=== PATIENT | male | born 1945 | race Caucasian/White ===

== ENCOUNTER → 2024-06-20 11:15 | Outpatient (REF) | payer MEDICARE, SELFPAY ==
[2024-06-20 12:11] LABS: % Basophils 0.1 % (0-2); % Eosinophils 1.1 % (0-6); % Immature Granulocytes 0.3 % (0-0.5); % Lymphocytes 25.2 % (20.5-51.1); % Monocytes 6.3 % (1.7-9.3); Absolute Eosinophils 0.1 10^3/uL (0-0.7); Absolute Lymphocytes 1.9 10^3/uL (1.2-3.4); Absolute Monocytes 0.5 10^3/uL (0.1-0.6); Hemoglobin 15.9 g/dL (13.0-18.0); Mean Corp Hgb Conc. 34.6 g/dL (33.0-37.0); Mean Corpuscular Volume 89.7 fL (80.0-94.0); Mean Platelet Volume 10.3 fL (7.4-10.4); Nucleated Red Blood Cells % 0 % (-); Platelet Count 233 10^3/uL (130-400); Red Blood Cell Count 5.13 10^6/uL (4.70-6.10); Red Cell Dist. Width 11.8 % (11.5-14.5); White Blood Cell Count 7.4 10^3/uL (4.8-10.8)
[2024-06-20 12:33] LABS: ALT (SGPT) 28 U/L (0-50); AST (SGOT) 30 U/L (17-59); Albumin 4.3 g/dl (3.5-5.0); Alkaline Phosphatase 118 U/L (38-126); Blood Urea Nitrogen 21 mg/dl (9-20); Calcium 9.2 mg/dl (8.4-10.2); Carbon Dioxide 28 mmol/L (22-30); Chloride 99 mmol/L (98-107); Glucose 130 mg/dl (70-99); HDL Cholesterol 36 mg/dl; LDL Cholesterol, Calculated 70 mg/dl; Potassium 4.4 mmol/L (3.5-5.1); Sodium 137 mmol/L (135-145); Total Bilirubin 1.1 mg/dl (0.2-1.3); Total Cholesterol 128 mg/dl (50-199); Total Protein 6.8 g/dl (6.3-8.2); Triglyceride 112 mg/dl (10-149); Very Low Density Lipoprotein 22 mg/dl (0-30); eGFR > 60.00
[2024-06-20 13:09] LABS: TSH Reflex To Free T4 1.47 uIU/ml (0.47-4.68)
[2024-06-20 13:28] LABS: Vitamin B12 215 pg/ml (239-931)
[2024-06-21 10:21] LABS: Glycohemoglobin (HgbA1c) 6.3 % (4.0-5.6)
== END ==
LOC: REG 11:15
PROVIDERS: ATTENDING PHYSICIAN Nurse Practitioner Adult Health
DX: E11.69 Type 2 diabetes mellitus with other specified complication (principal); I10 Essential (primary) hypertension; E78.2 Mixed hyperlipidemia; E53.8 Deficiency of other specified B group vitamins; Z00.00 Encounter for general adult medical examination without abnormal findings; Z13.29 Encounter for screening for other suspected endocrine disorder; Z51.81 Encounter for therapeutic drug level monitoring
CPT/HCPCS: 36415; 80053; 80061; 82607; 83036; 84443; 85025

== ENCOUNTER → 2024-09-27 15:21 | Outpatient (REF) | payer MEDICARE, SELFPAY ==
[2024-09-27 16:07] LABS: Digoxin 0.8 ng/ml (0.8-2.0)
== END ==
LOC: REG 15:21
PROVIDERS: ATTENDING PHYSICIAN Internal Medicine; FAMILY PHYSICIAN Nurse Practitioner Adult Health
DX: I48.0 Paroxysmal atrial fibrillation (principal)
CPT/HCPCS: 36415; 80162

== ENCOUNTER → 2024-11-11 06:28 | Day surgery (SDC) | payer MEDICARE, SELFPAY | LOC: GI 06:28 | PROVIDERS: ATTENDING PHYSICIAN Internal Medicine | DX: Z12.11 Encounter for screening for malignant neoplasm of colon (principal); K64.9 Unspecified hemorrhoids; D12.2 Benign neoplasm of ascending colon; D12.3 Benign neoplasm of transverse colon; Z86.0101 Personal history of adenomatous and serrated colon polyps | CPT/HCPCS: 45385; 88305 ==

== ENCOUNTER → 2024-12-11 12:13 | Outpatient (REF) | payer MEDICARE, SELFPAY ==
[2024-12-11 12:56] LABS: % Basophils 0.3 % (0-2); % Immature Granulocytes 0.4 % (0-0.5); % Lymphocytes 22.8 % (20.5-51.1); % Monocytes 5.4 % (1.7-9.3); % Neutrophils 70.1 % (42.2-75.2); Absolute Eosinophils 0.1 10^3/uL (0-0.7); Absolute Lymphocytes 1.6 10^3/uL (1.2-3.4); Absolute Monocytes 0.4 10^3/uL (0.1-0.6); Absolute Neutrophils 4.8 10^3/uL (1.4-6.5); Hematocrit 44.8 % (39.0-52.0); Hemoglobin 15.2 g/dL (13.0-18.0); Mean Corp Hgb Conc. 33.9 g/dL (33.0-37.0); Mean Corpuscular Hgb 30.3 pg (27.0-31.0); Mean Corpuscular Volume 89.4 fL (80.0-94.0); Mean Platelet Volume 9.7 fL (7.4-10.4); Nucleated Red Blood Cells % 0 % (-); Platelet Count 244 10^3/uL (130-400); Red Blood Cell Count 5.01 10^6/uL (4.70-6.10); Red Cell Dist. Width 11.9 % (11.5-14.5); White Blood Cell Count 6.9 10^3/uL (4.8-10.8)
[2024-12-11 13:35] LABS: Glycohemoglobin (HgbA1c) 6.6 % (4.0-5.6)
[2024-12-11 13:37] LABS: ALT (SGPT) 30 U/L (0-50); AST (SGOT) 31 U/L (17-59); Albumin 4.2 g/dl (3.5-5.0); Alkaline Phosphatase 124 U/L (38-126); Blood Urea Nitrogen 19 mg/dl (9-20); Calcium 9.4 mg/dl (8.4-10.2); Carbon Dioxide 30 mmol/L (22-30); Chloride 97 mmol/L (98-107); Glucose 177 mg/dl (70-99); Potassium 4.3 mmol/L (3.5-5.1); Sodium 136 mmol/L (135-145); Total Bilirubin 1.3 mg/dl (0.2-1.3); Total Protein 6.8 g/dl (6.3-8.2); eGFR > 60.00
[2024-12-11 14:24] LABS: Vitamin B12 453 pg/ml (239-931)
== END ==
LOC: REG 12:13
PROVIDERS: ATTENDING PHYSICIAN Nurse Practitioner Adult Health
DX: E11.69 Type 2 diabetes mellitus with other specified complication (principal); I10 Essential (primary) hypertension; E53.8 Deficiency of other specified B group vitamins; Z13.29 Encounter for screening for other suspected endocrine disorder; Z00.00 Encounter for general adult medical examination without abnormal findings; Z79.899 Other long term (current) drug therapy
CPT/HCPCS: 36415; 80053; 82607; 83036; 85025

== ENCOUNTER → 2025-04-04 12:22 | Outpatient (REF) | payer MEDICARE, SELFPAY ==
[2025-04-04 13:57] LABS: HDL Cholesterol 40 mg/dl; LDL Cholesterol, Calculated 56 mg/dl; Total Cholesterol 112 mg/dl (50-199); Triglyceride 81 mg/dl (10-149); Very Low Density Lipoprotein 16 mg/dl (0-30)
== END ==
LOC: REG 12:22
PROVIDERS: ATTENDING PHYSICIAN Internal Medicine; FAMILY PHYSICIAN Nurse Practitioner Adult Health
DX: E78.2 Mixed hyperlipidemia (principal)
CPT/HCPCS: 36415; 80061

== ENCOUNTER → 2025-04-15 12:09 | Outpatient (REF) | payer MEDICARE, SELFPAY | LOC: HWRCS 12:09 | PROVIDERS: ATTENDING PHYSICIAN Internal Medicine; FAMILY PHYSICIAN Nurse Practitioner Adult Health | DX: I25.118 Atherosclerotic heart disease of native coronary artery with other forms of angina pectoris (principal); I48.0 Paroxysmal atrial fibrillation; I25.5 Ischemic cardiomyopathy; I36.1 Nonrheumatic tricuspid (valve) insufficiency; E78.2 Mixed hyperlipidemia | CPT/HCPCS: 78452; 93017; A9500; J2785 ==

== ENCOUNTER → 2025-04-22 15:13 | Outpatient (REF) | payer MEDICARE, SELFPAY | LOC: RCS 15:13 | PROVIDERS: ATTENDING PHYSICIAN Internal Medicine; FAMILY PHYSICIAN Nurse Practitioner Adult Health | DX: I48.0 Paroxysmal atrial fibrillation (principal); I25.118 Atherosclerotic heart disease of native coronary artery with other forms of angina pectoris; I25.5 Ischemic cardiomyopathy; R09.89 Other specified symptoms and signs involving the circulatory and respiratory systems; I36.1 Nonrheumatic tricuspid (valve) insufficiency; E78.2 Mixed hyperlipidemia | CPT/HCPCS: 93306 ==

== ENCOUNTER → 2025-06-16 15:39 | Outpatient (REF) | payer MEDICARE, SELFPAY ==
[2025-06-16 17:16] LABS: HDL Cholesterol 35 mg/dl; LDL Cholesterol, Calculated 43 mg/dl; Very Low Density Lipoprotein 19 mg/dl (0-30)
== END ==
LOC: REG 15:39
PROVIDERS: ATTENDING PHYSICIAN Nurse Practitioner Adult Health
DX: E11.69 Type 2 diabetes mellitus with other specified complication (principal); I10 Essential (primary) hypertension; E53.8 Deficiency of other specified B group vitamins; Z13.29 Encounter for screening for other suspected endocrine disorder; Z79.899 Other long term (current) drug therapy; Z00.00 Encounter for general adult medical examination without abnormal findings
CPT/HCPCS: 36415; 80061; 84443

== ENCOUNTER → 2025-08-05 14:48 | Outpatient (REF) | payer MEDICARE, SELFPAY ==
[2025-08-05 16:09] LABS: Hematocrit 48.6 % (39.0-52.0); Hemoglobin 16.2 g/dL (13.0-18.0); Mean Corp Hgb Conc. 33.3 g/dL (33.0-37.0); Mean Corpuscular Volume 90.0 fL (80.0-94.0); Nucleated Red Blood Cells % 0 % (-); Platelet Count 308 10^3/uL (130-400); Red Cell Dist. Width 11.9 % (11.5-14.5)
[2025-08-05 16:55] LABS: ALT (SGPT) 40 U/L (0-50); AST (SGOT) 26 U/L (17-59); Albumin 4.5 g/dl (3.5-5.0); Alkaline Phosphatase 95 U/L (38-126); Blood Urea Nitrogen 20 mg/dl (9-20); Calcium 9.9 mg/dl (8.4-10.2); Carbon Dioxide 31 mmol/L (22-30); Chloride 100 mmol/L (98-107); Glucose 208 mg/dl (70-99); Potassium 4.7 mmol/L (3.5-5.1); Sodium 139 mmol/L (135-145); Total Protein 7.1 g/dl (6.3-8.2); eGFR > 60.00
== END ==
LOC: REG 14:48
PROVIDERS: ATTENDING PHYSICIAN Specialist; FAMILY PHYSICIAN Family Medicine
DX: R31.0 Gross hematuria (principal)
CPT/HCPCS: 36415; 80053; 85025

== ENCOUNTER → 2025-08-08 13:59 | Outpatient (REF) | payer MEDICARE, SELFPAY | LOC: RAD 13:59 | PROVIDERS: ATTENDING PHYSICIAN Specialist; FAMILY PHYSICIAN Nurse Practitioner Adult Health | DX: R31.0 Gross hematuria (principal) | CPT/HCPCS: 74178; Q9967 ==

== ENCOUNTER 2025-09-11 06:31 | Day surgery (SDC) | payer MEDICARE, SELFPAY ==
[2025-09-11] VITALS (10 sets, daily range): BP systolic 120–160; BP diastolic 73–90; BMI 21.6
== END 2025-09-11 16:02 | disposition home or self-care (01) ==
LOC: SDS 06:31
PROVIDERS: ATTENDING PHYSICIAN Specialist
DX: D41.22 Neoplasm of uncertain behavior of left ureter (principal); R31.0 Gross hematuria; Z79.01 Long term (current) use of anticoagulants
CPT/HCPCS: 52332; 74420; 76000; C1758; C2617

== ENCOUNTER → 2025-11-10 14:20 | Outpatient (REF) | payer MEDICARE, SELFPAY ==
[2025-11-10 15:16] LABS: Urine Character Slightly Cloudy (Clear)
[2025-11-10 15:28] LABS: Urine Red Blood Cell >100 /HPF (0-2); Urine Squamous Cell 0-2 /LPF (Few)
[2025-11-10 15:29] LABS: Urine White Cell 0-2 /HPF (0-5)
== END ==
LOC: REG 14:20
PROVIDERS: ATTENDING PHYSICIAN Urology; FAMILY PHYSICIAN Nurse Practitioner Adult Health
DX: C68.9 Malignant neoplasm of urinary organ, unspecified (principal); R31.0 Gross hematuria
CPT/HCPCS: 81003; 81015; 87086